=== PATIENT | female | born 2000 | race Caucasian/White ===

== ENCOUNTER 2020-03-24 21:32 | Emergency (ER) | payer BC ==
[2020-03-24 21:45] VITALS: BP 120/78; PULSE 76; RESP 20; TEMP 98.2
[2020-03-24] MEDS ORDERED: LIDOCAINE 1% INJ 10MG/ML (20 ML MDV) SQ ONE (21:53)
--- NOTE | 2020-03-24 22:05 | ED ---
Wound/Laceration HPI - General Source: patient Mode of arrival: ambulatory Limitations: no limitations <Flako Park - Last Filed: 03/24/20 22:32> <Ora Hayward - Last Filed: 03/26/20 02:31> - General Chief Complaint: Wound/Laceration Stated Complaint: L Hand Injury Time Seen by Provider: 03/24/20 21:47 - History of Present Illness Initial Comments: Patient is a 19-year-old female presenting to the emergency department with chief complaint of a laceration. Patient states she was using a knife to cut some food when she lacerated the palmar aspect at the base of the left thumb. Patient reports minimal pain or bleeding. States her tetanus is up-to-date. Denies any numbness or tingling. States she has full range of motion in the thumb. States the incident occurred about one hour prior to arrival. (Flako Park) - Related Data Allergies Allergy/AdvReac Type Severity Reaction Status Date / Time Penicillins Allergy Rash/Hives Verified 03/24/20 21:45 Review of Systems ROS Other: All systems not noted in ROS Statement are negative. <Flako Park - Last Filed: 03/24/20 22:32> ROS Other: All systems not noted in ROS Statement are negative. <Ora Hayward - Last Filed: 03/26/20 02:31> ROS Statement: Those systems with pertinent positive or pertinent negative responses have been documented in the HPI. Past Medical History Past Medical History: No Reported History History of Any Multi-Drug Resistant Organisms: None Reported Past Surgical History: No Surgical Hx Reported Past Psychological History: No Psychological Hx Reported Smoking Status: Never smoker Past Alcohol Use History: None Reported Past Drug Use History: None Reported <Flako Park - Last Filed: 03/24/20 22:32> General Exam Limitations: no limitations General appearance: alert, in no apparent distress Head exam: Present: atraumatic, normocephalic, normal inspection Eye exam: Present: normal appearance, PERRL, EOMI Pupils: Present: normal accommodation ENT exam: Present: normal exam, normal oropharynx, mucous membranes moist, TM's normal bilaterally, normal external ear exam Neck exam: Present: normal inspection, full ROM. Absent: tenderness Respiratory exam: Present: normal lung sounds bilaterally. Absent: respiratory distress, wheezes, rales Cardiovascular Exam: Present: regular rate, normal rhythm, normal heart sounds Extremities exam: Present: full ROM, normal capillary refill, other (+2 ulnar and radial pulses bilateral. Sensation intact in bilateral upper extremity is.). Absent: normal inspection (Superficial laceration measuring approximately 1.5 cm in length), tenderness Back exam: Present: normal inspection, full ROM. Absent: tenderness Neurological exam: Present: alert, oriented X3 Psychiatric exam: Present: normal affect, normal mood Skin exam: Present: warm, dry, intact, normal color <Flako Park - Last Filed: 03/24/20 22:32> Course Vital Signs 03/24/20 21:40 Temperature 98.2 F Pulse Rate 76 Respiratory 20 Rate Blood Pressure 120/78 O2 Sat by Pulse 98 Oximetry Procedures - Laceration Laceration #1 Consent Obtained: verbal consent Indication: laceration Site: hand (Left) Size (cm): 2 Description: linear, clean Depth: simple, single layer Sedation/Analgesia: none Anesthetic Used: lidocaine 1% Anesthesia Technique: local infiltration Amount (mls): 3 Pre-repair: irrigated extensively, deep structures intact Type of Sutures: nylon Size of Sutures: 4-0 Number of Sutures: 3 Technique: simple, interrupted Patient Tolerated Procedure: well, no complications <Flako Park - Last Filed: 03/24/20 22:32> Medical Decision Making <Flako Park - Last Filed: 03/24/20 22:32> <Ora Hayward - Last Filed: 03/26/20 02:31> - Medical Decision Making Patient is a 19-year-old male presenting to emergency Department with a chief complaint of laceration. This was a clean laceration with a knife. Laceration site was thoroughly irrigated. 3 sutures were applied. Patient tolerate the procedure well. Return parameters thoroughly discussed the patient was understanding and agreeable. Neurovascularly intact in the right hand. She was advised to return to emergency Department in 7-10 days for suture removal. Case discussed with physician. (Flako Park) I was available for consultation in the emergency department. The history and physical exam were done by the midlevel provider. I was consulted for this patients care. I reviewed the case with the midlevel provider and based on their presentation of the patient, I agree with the assessment, medical decision making and plan of care as documented. Chart was dictated using [employer]elly[employer] dictation software. Attempts were made to correct any dictation errors however some typographical errors may persist. Patient was seen during a national state of emergency due to the Covid-19 pandemic. (Ora Hayward) Disposition Is patient prescribed a controlled substance at d/c from ED?: No Time of Disposition: 22:32 <Flako Park - Last Filed: 03/24/20 22:32> <Ora Hayward - Last Filed: 03/26/20 02:31> Clinical Impression: Laceration Disposition: HOME SELF-CARE Instructions (If sedation given, give patient instructions): Care For Your Stitches (DC), Laceration (DC) Additional Instructions: Return to emergency Department 7 days for suture removal. Referrals: None,Stated [REFERRING] - 1-2 days
== END 2020-03-24 22:41 | disposition home or self-care (01) ==
LOC: EC 21:32
DX: S61.412A Laceration without foreign body of left hand, initial encounter (principal); Z88.0 Allergy status to penicillin; W26.0XXA Contact with knife, initial encounter; Y93.89 Activity, other specified; Y92.69 Other specified industrial and construction area as the place of occurrence of the external cause; Y99.0 Civilian activity done for income or pay
CPT/HCPCS: 99282; 12001; J2001; 99283

== ENCOUNTER → 2023-11-12 | Outpatient (CLI) | payer BC | END | disposition home or self-care (01) | LOC: LABWHC1 09:13 | PROVIDERS: ATTEND Obstetrics & Gynecology Obstetrics | DX: N92.5 Other specified irregular menstruation (principal) | CPT/HCPCS: 36415; 84702; 86850; 86900; 86901 ==